=== PATIENT | female | born 1950 | race Caucasian/White ===

== ENCOUNTER 2016-05-17 13:47 | Emergency (ER) | payer BC, MEDICARE, OTHER ==
[2016-05-17] MEDS ORDERED: ONDANSETRON 4 MG VIAL ONE (15:18)
[2016-05-17] MEDS ORDERED: DICYCLOMINE 20MG/2ML VIAL IM ONE (15:18)
[2016-05-17] MEDS ORDERED: PANTOPRAZOLE 80 MG in SODIUM CHLORIDE 0.9% 250 ML IV ONE (15:30)
[2016-05-17] MEDS ORDERED: SODIUM CHLORIDE 0.9% 1,000 ML ONE (15:34)
== END 2016-05-17 17:39 | disposition home or self-care (01) ==
LOC: ER 13:47
DX: K29.00 Acute gastritis without bleeding (principal); F17.200 Nicotine dependence, unspecified, uncomplicated
CPT/HCPCS: 36415; 74022; 80053; 81001; 82553; 83690; 84484; 85025; 93005; 96361; 96365; 96372; 96375; 99285; J0500; J2405; J7050